=== PATIENT | female | born 1965 | race Caucasian/White ===

== ENCOUNTER 2020-03-08 17:21 | Emergency (ER) | payer BC, MEDICAID ==
[~2020-03-08] VITALS: Ht 162.6 cm; Wt 87.6 kg
--- NOTE | 2020-03-08 18:05 | NUR ---
DIRECTOR GEOTHERMAL OPERATIONS: PT TO ROOM FROM LOBBY
--- NOTE | 2020-03-08 18:13 | NUR ---
ASSUMED CARE OF PT AT THIS TIME. GEGE HAMILTON AT BEDSIDE FOR EVAL AT THIS TIME.
[2020-03-08] MEDS ORDERED: KETOROLAC 30 MG/1 ML IM ONE (18:30)
[2020-03-08] MEDS ORDERED: KETOROLAC 60 MG/2 ML ONE (18:38)
--- NOTE | 2020-03-08 18:43 | NUR ---
FIRST PT CONTACT, PAIN FOR ONE MONTH AFTER JET SKIING, PROGRESSIVELY WORSE AFTER SEEING CHIROPRACTOR LAST WEEK. MEDICATED PER EMAR, 5 RIGHTS VERIFIED, SCANNER IN ROOM NOT FUNCTIONING AT THIS TIME. REMAINS NAD AND SIGNIFICANT OTHER AT BEDSIDE.
[2020-03-08 19:53] VITALS: BP 113/67
== END 2020-03-08 19:55 | disposition home or self-care (01) ==
LOC: ED 18:22
DX: M25.552 Pain in left hip (principal)
CPT/HCPCS: 72110; 73502; 96372; 99284; J1885

== ENCOUNTER 2021-03-23 18:32 | Emergency (ER) | payer MEDICAID, MEDICARE ==
[~2021-03-23] VITALS: Ht 162.6 cm; Wt 70.4 kg
--- NOTE | 2021-03-23 19:12 | NUR ---
Pt is pleasant upon assessment, alert and oriented x4, in no acute distress. Pt had tummy tuck and breast reduction performed via same day surgery x4 weeks ago. States she has been compliant with ABX, however surgical wounds are remain open, poor closure/healing. +swelling, +redness, +pain, +increased drainage. Breasts - pt has diffuse scabbing, dark/yellowish scabs throughout skin of bilateral breasts. erythema surrounding the scabs, no open wounds/drainange noted on breasts. Abdomen - pt has 3 medial/umbilical wounds noted. One is half dollar size, the other two are quarter size. Approx 2 inches deep, no bleeding noted. However, pt noted excessive drainange. Had a follow up two days ago in office and was told wounds were healing fine.
[2021-03-23] MEDS ORDERED: ONDANSETRON 2MG/ML, 2ML ONE (19:56)
[2021-03-23] MEDS ORDERED: MORPHINE SULFATE 4 MG/ML, 1ML ONE (19:57)
[2021-03-23] MEDS ORDERED: ONDANSETRON 2MG/ML, 2ML IVPush ONE (20:00)
[2021-03-23] MEDS ORDERED: SODIUM CHLORIDE 0.9% 1,000ML IVBOLUS ONE (20:00)
[2021-03-23] MEDS ORDERED: MORPHINE SULFATE 4 MG/ML, 1ML IVPush PRN (20:00)
[2021-03-23] MEDS ORDERED: SODIUM CHLORIDE FLUSH 10ML SYR IVF ONE (20:00)
--- NOTE | 2021-03-23 20:12 | NUR ---
PIV established, IVF running, pain and nausea meds given. Pt tolerated well. All blood work sent to lab at this time. Call mckeon and personal items within reach.
[2021-03-23 20:22] LABS: BASOPHILS % (AUTO) 0 % (0-1); EOSINOPHILS % (AUTO) 1 % (1-7); LYMPHOCYTES % (AUTO) 17 % (22-44); MEAN CORPUSCULAR HEMOGLOBIN 26.4 pg (27.0-34.8); MEAN CORPUSCULAR HGB CONC 32.7 g/dL (32.4-35.8); MEAN PLATELET VOLUME 6.8 fL (7.4-10.4); MONOCYTES % (AUTO) 14 % (2-9); NEUTROPHILS % (AUTO) 68 % (42-75); PLATELET COUNT 471 x10^3/uL (130-400); RED BLOOD COUNT 3.64 x10^6/uL (3.82-5.3); RED CELL DISTRIBUTION WIDTH 14.8 % (9.6-15.2)
[2021-03-23 20:34] LABS: ALANINE AMINOTRANSFERASE 20 U/L (12-78); ALBUMIN 2.4 g/dL (3.4-5.0); ANION GAP 4 mmol/L (5-15); CALCIUM 8.6 mg/dL (8.5-10.1); CHLORIDE 103 mmol/L (98-107); CREATININE 0.89 mg/dL (0.55-1.02)
[2021-03-23 20:37] LABS: ALKALINE PHOSPHATASE 97 U/L (45-117); BILIRUBIN,TOTAL 0.3 mg/dL (0.2-1.0); TOTAL PROTEIN 6.6 g/dL (6.4-8.2)
[2021-03-23 22:12] VITALS: BP 108/76
--- NOTE | 2021-03-23 22:23 | NUR ---
New dressing change completed, pt tolerated well. CDI. Education provided on wound care.
== END 2021-03-23 22:25 | disposition home or self-care (01) ==
LOC: ED 21:14
DX: T81.30XA Disruption of wound, unspecified, initial encounter (principal); D64.9 Anemia, unspecified; Z48.01 Encounter for change or removal of surgical wound dressing; F17.210 Nicotine dependence, cigarettes, uncomplicated
CPT/HCPCS: 36415; 80053; 83605; 84145; 85025; 87040; 96361; 96374; 96375; 99284; 99406; J2270; J2405; J7030